=== PATIENT | female | born 1980 | race Caucasian/White ===

== ENCOUNTER 2017-04-21 08:59 | Emergency (ER) | payer MEDICAID ==
--- NOTE | 2017-04-21 09:33 | ED Physician Chart ---
Chief Complaint/HPI - Patient Information Date Seen:: 04/21/17 Time Seen:: 09:16 Chief Complaint:: Vaginal bleeding this morning. History of Present Illness:: female with LNMP 01/26/17 with confirmed single IUP by sonogram on 04/15/17. Pt noticed vaginal spotting at about 0900 today. Pt denies any pelvic pain or cramp. No fever or lightheadedness. Allergies:: Allergies Allergy/AdvReac Type Severity Reaction Status Date / Time No Known Allergies Allergy Verified 04/21/17 09:24 Vitals:: See Nurse Note. Historian:: Patient Family MD/PCP:: Unknown LMP:: 01/26/17 Review:: Nurse's Note Reviewed Review of Systems - Review of Systems General/Constitutional: No fever, No chills, No weight loss, No weakness, No edema, No loss of appetite Skin: No skin lesions, No rash, No bruising Head: No headache, No light-headedness Eyes: No loss of vision, No pain ENT: No earache, No nasal drainage, No sore throat Neck: No neck pain Cardio Vascular: No chest pain, No palpitations, No edema Pulmonary: No SOB, No cough, No wheezing GI: No nausea, No vomiting, No pain G/U: No dysuria, No frequency, No hematuria Professional Healthcare Representative: No vaginal discharge, Abnormal vaginal bleeding, No contraction Musculoskeletal: No bone or joint pain, No back pain, No muscle pain Endocrine: No polyuria, No polydipsia Psychiatric: No prior psych history Hematopoietic: No bruising, No lymphadenopathy Allergic/Immuno: No urticaria, No angioedema Neurological: No syncope, No focal symptoms, No weakness, No paresthesia, No headache, No confusion Past Medical History - Past Medical History Past Medical History: No significant medical hx Family History: None Social History: Non Smoker, No Alcohol, No Drug Use, Single, Other (lives with significant other and children.) Employment:: Unemployed. Surgical History: None Psychiatricy History: None Medication: Reviewed Family Medical History - Family Member Mother Ethnicity: Living Status: Still Living Physical Exam - Physical Examination General/Constitutional: Awake, Well-developed, well-nourished, Alert, No distress, GCS 15, Non-toxic appearing, Ambulatory Other Gen/Cons comments:: Breathes comfortably, speaks clearly, interacts normally, and ambulates without difficulty. Head: Atraumatic Eyes: Lids, conjuctiva normal, PERRL, EOMI Skin: Nl inspection, No rash, No skin lesions, No ecchymosis, Well hydrated, No lymphadenopathy ENMT: Oropharynx nl Neck: Nontender, Full ROM w/o pain, No nuchal rigidity, No mass, No stridor Respiratory: Nl effort/Exclusion, Clear to Auscultation, No Wheeze/Rhonchi/Rales Cardio Vascular: RRR, No murmur, gallop, rubs, NL S1 S2 GI: No tenderness/rebounding/guarding, No organomegaly, Normal BS's, No mass/ bruits Other GI comments:: Obese but soft. : No CVA tenderness, NL external genitalia, No discharge, No CMT, NL adnexa Other comments:: Pelvic exam performed in the presence of female nurse Misty: Uterus is enlarged c/ w gestation. Cervical os is closed. No active bleeding. There is trace old blood in vaginal canal. No exudate. No CMT. No adnexal mass or tenderness. Extremities: No tenderness or effusion, Full ROM, normal strength in all extremities, No edema, Normal digits & nails Neuro/Psych: Alert/oriented (oriented x 3), Judgement/insight normal, Mood normal, Normal gait, No focal deficits Labs/Radiology/EKG Results - Lab Results Results: Laboratory Tests 04/21/17 04/21/17 04/21/17 09:32 09:32 09:32 WBC 9.0 RBC 4.66 Hgb 13.9 Hct 42.6 MCV 91.5 MCH 29.8 MCHC Differential 32.6 RDW 12.8 Plt Count 243 MPV 8.3 Neutrophils % 63.0 Lymphocytes % 28.2 Monocytes % 7.3 Eosinophils % 1.3 Basophils % 0.2 PT 9.7 INR 0.93 PTT (Actin FS) 26.2 Sodium 134 L Potassium 3.4 L Chloride 105 Carbon Dioxide 25.2 Anion Gap 7.2 BUN 8 Creatinine 0.5 L Est GFR ( Amer) > 60.0 Est GFR (Non-Af Amer) > 60.0 BUN/Creatinine Ratio 16.0 Glucose 88 Calcium 9.3 Total Bilirubin 0.3 AST 13 ALT 13 Alkaline Phosphatase 57 Total Protein 7.4 Albumin 4.0 Globulin 3.4 Albumin/Globulin Ratio 1.2 Beta HCG, Quant [id number] Blood Type 04/21/17 09:32 WBC RBC Hgb Hct MCV MCH MCHC Differential RDW Plt Count MPV Neutrophils % Lymphocytes % Monocytes % Eosinophils % Basophils % PT INR PTT (Actin FS) Sodium Potassium Chloride Carbon Dioxide Anion Gap BUN Creatinine Est GFR ( Amer) Est GFR (Non-Af Amer) BUN/Creatinine Ratio Glucose Calcium Total Bilirubin AST ALT Alkaline Phosphatase Total Protein Albumin Globulin Albumin/Globulin Ratio Beta HCG, Quant Blood Type O POSITIVE - Radiology Results Results: Pelvic sonogram (preliminary report): FHR 143 bpm. CR: 13 wks. Questionable subchorionic hemorrhage. R ovarian cyst 1.5 x 1 x 1.4 cm. ED Septic Shock - . Is Septic Shock (SBP<90, OR Lactate>4 mmol\L) present?: No Reassessment (Disposition) - Reassessment Reassessment:: 1250 Pt remains stable and comfortable. No pelvic pain or cramp. Vaginal bleeding has stopped. Lab and pelvic sonographic findings have been reviewed with pt. Pt requests to go home now and does not want further observation/ management in hospital. Aftercare instructions have been given. Pt speaks adequate Hungarian. Interpretation is also provided by my nurse Mr. Davi Boyce to ensure complete understanding. Reassessment Condition:: Improved - Diagnosis Diagnosis:: Threatened . Stable. Mild hypokalemia. Stable. - Aftercare/Follow up Instructions Aftercare/Follow-Up Instructions:: Refer to Discharge Instructions Notes:: Bedrest today. No sexual intercourse until further physician direction. Increase oral intake of potassium rich foodstuffs such as banana, etc. F/U with Dr. [facility] at [facility] of pt's choice in one day for recheck with repeat lab study: BMP. Return to ER immediately if condition worsens or if any further questions/problems. Medication Prescribed:: None - Patient Disposition Discharge/Transfer:: Home Time:: 12:50 Condition at Disposition:: Stable, Improved
[2017-04-21 09:58] LABS: % BASOPHILS 0.2 % (0.0-2.0); % EOSINOPHILS 1.3 % (0.0-5.0); % LYMPHOCYTES 28.2 % (20.0-50.0); % MONOCYTES 7.3 % (2.0-10.0); HEMATOCRIT 42.6 % (35.0-45.0); HEMOGLOBIN 13.9 gm/dL (11.7-15.5); MEAN CELL VOLUME 91.5 fl (81-100); MEAN CORPUSCULAR HEMOGLOBIN 29.8 pg (27.0-31.0); MEAN CORPUSCULAR HGB CONC 32.6 pg (28.0-36.0); MEAN PLATELET VOLUME 8.3 fl; NEUTROPHILE ABSOLUTE 5.7 Th/cmm (1.8-8.0); PLATELET COUNT 243 Th/cmm (150-400); RED BLOOD COUNT 4.66 Mil/cmm (3.80-5.10); RED CELL DISTRIBUTION WIDTH 12.8 % (11.5-20.0)
[2017-04-21 10:09] LABS: INR 0.93 (0.5-1.4); PROTHROMBIN TIME (TEST) 9.7 SECONDS (9.5-11.5)
[2017-04-21 10:15] LABS: ALB/GLOB RATIO 1.2 (1.0-1.8); ALKALINE PHOSPHATASE 57 U/L (34-104); ANION GAP 7.2 (7.0-16.0); BILIRUBIN,TOTAL 0.3 mg/dL (0.3-1.0); BUN - UREA NITROGEN 8 mg/dL (7-25); CALCIUM SERUM 9.3 mg/dL (8.6-10.3); CARBON DIOXIDE 25.2 mEq/L (21.0-31.0); CHLORIDE 105 mEq/L (98-107); CREATININE - SERUM 0.5 mg/dL (0.6-1.2); GLUCOSE 88 mg/dL (70-105); POTASSIUM SERUM 3.4 mEq/L (3.5-5.1); SGOT 13 U/L (13-39); SGPT/ALT 13 U/L (7-52); SODIUM SERUM 134 mEq/L (136-145)
[2017-04-21 10:47] LABS: HCG QUANT 102345 mIU/mL
[2017-04-21] MEDS ORDERED: Potassium Chloride 20 mEq ER Tab PO ONE ×2 (12:20→12:29)
--- NOTE | 2017-04-22 10:56 | Diagnostic Imaging Report ---
Ultrasound OB, less than 14 weeks HISTORY: female with vaginal bleeding left menstrual period is not known. COMPARISON: None Technique: Longitudinal and transverse sonographic sector images of the pelvis were obtained transabdominally and transvaginally. FINDINGS: The uterus measures 11.6 x 7.7 cm. Transverse dimensions was not provided. An intrauterine gestational sac is seen with pole identified. The crown-rump length measures 6.66 cm corresponding gestational age of 13 weeks and 0 days +/-2 weeks. The heart rate in exam was 143 bpm. The right ovary measures 2.9 x 2.7 cm demonstrating a dominant cyst measuring 1.5 cm. Vascular flow to right ovary is noted. The left ovary is not visualized. There may be a small subchorionic hemorrhage. Small amount of fluid is also noted in the endocervical canal. IMPRESSION: Single live intrauterine gestation with estimated gestational age of 13 weeks and 0 days +/-2 weeks based on crown-rump length. Short-term follow-up including follow-up anatomical survey is recommended for further assessment/monitoring. Questionable small subchorionic hemorrhage. Again short-term follow-up ultrasound is recommended for further assessment/monitoring. Right ovarian cyst measuring 1.5 cm. No evidence of free fluid in the pelvis. Small amount of fluid in the endocervical canal.
== END 2017-04-21 12:50 | disposition home or self-care (01) ==
LOC: ER 08:59
DX: O20.0 Threatened abortion (principal); E87.6 Hypokalemia; Z3A.13 13 weeks gestation of pregnancy
CPT/HCPCS: 36415-UA; 76811-TC; 80053-TC; 84702-TC; 85025-TC; 85610-TC; 86900-TC; 86901-TC